=== PATIENT | male | born 1970 | race Caucasian/White ===

== ENCOUNTER 2016-06-15 15:32 | Emergency (ER) | payer OTHER ==
[~2016-06-15] VITALS: Ht 177.8 cm; Wt 75.0 kg
[2016-06-15 15:34] VITALS: BP 113/69; PULSE 70; RESP 16; TEMP 98; O2SAT 95
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
[2016-06-15] MEDS ORDERED: DICL50TA3 PO (18:23)
[2016-06-15] MEDS ORDERED: ROBA750T PO (18:23)
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
== END 2016-06-15 18:48 | disposition home or self-care (01) ==
LOC: NEPB 15:32
DX: S16.1XXA Strain of muscle, fascia and tendon at neck level, initial encounter (principal); S50.01XA Contusion of right elbow, initial encounter; R51 Headache; V89.2XXA Person injured in unspecified motor-vehicle accident, traffic, initial encounter; Y92.410 Unspecified street and highway as the place of occurrence of the external cause
CPT/HCPCS: 72125; 73080